=== PATIENT | male | born 1985 | race Caucasian/White ===

== ENCOUNTER 2018-10-10 22:09 | Emergency (ER) | payer OTHER ==
[2018-10-10 23:00] VITALS: PULSE 81; TEMP 97.9
--- NOTE | 2018-10-11 00:11 | ED ---
General Adult HPI - General Source: patient Mode of arrival: ambulatory Limitations: no limitations <Derek Marie Miguel Ángel - Last Filed: 10/11/18 01:16> <Fredy Pak - Last Filed: 10/11/18 01:59> - General Chief complaint: Skin/Abscess/Foreign Body Stated complaint: Poss parasite Time Seen by Provider: 10/10/18 23:56 - History of Present Illness Initial comments: Dictation was produced using [employer] dictation software. please excuse any grammatical, word or spelling errors. Chief Complaint: 33-year-old male with no significant past medical history presents with acute intermittent rash. History of Present Illness: Is a 33-year-old male he is accompanied by his family. Patient states he gets these intermittent rash that occurred every so often. Patient states that he's been having intermittent symptoms that recurred over the last 2-3 days. Patient was at home when he thought that he saw warm coming out of his belly button. Patient thinks he has a parasitic infection. He states he noticed these intermittent rash that occur for several minutes at a time and resolves spontaneously. Patient took a wire brush and tried to brush of the rash. He also notes a poor appetite and inability to gain weight. Patient does not have a PCP. The ROS documented in this emergency department record has been reviewed and confirmed by me. Those systems with pertinent positive or negative responses have been documented in the HPI. All other systems are other negative and/or noncontributory. PHYSICAL EXAM: General Impression: Alert and oriented x3, not in acute distress HEENT: Normocephalic atraumatic, extra-ocular movements intact, pupils equal and reactive to light bilaterally, mucous membranes moist. Cardiovascular: Heart regular rate and rhythm, S1&S2 audible, no murmurs, rubs or gallops Chest: Lungs clear to auscultation bilaterally, no rhonchi, no wheeze, no rales Abdomen: Bowel sounds present, abdomen soft, non-tender, non-distended, no organomegaly Musculoskeletal: Pulses present and equal in all extremities, no peripheral edema Motor: no focal deficits noted Neurological: CN II-XII grossly intact, no focal motor or sensory deficits noted Skin: Multiple superficial abrasions to the bilateral hands Psych: Normal affect and mood ED course: 33-year-old male presents chief complaint of rash and a warm coming out of his belly button. There is no identifiable rash seen at this time. He does have multiple excoriations likely from a wire brush that he was used to scrub the rash out. An attempt was tried to reassure patient that there is no worms that could possibly, from of his belly button. he had expectations to come here and have some blood tests performed. Discussed with patient that there is no indication for these tests however they were adamant. 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 Pending lab studies. Patient is signed out to Dr. Elias. (Derek Marie) - Related Data Allergies Allergy/AdvReac Type Severity Reaction Status Date / Time No Known Allergies Allergy Verified 10/10/18 22:59 Review of Systems ROS Other: All systems not noted in ROS Statement are negative. <Derek Marie - Last Filed: 10/11/18 01:16> ROS Other: All systems not noted in ROS Statement are negative. <Fredy Pak - Last Filed: 10/11/18 01:59> ROS Statement: Those systems with pertinent positive or pertinent negative responses have been documented in the HPI. Past Medical History Past Medical History: No Reported History History of Any Multi-Drug Resistant Organisms: None Reported Past Surgical History: No Surgical Hx Reported Past Psychological History: No Psychological Hx Reported Smoking Status: Never smoker Past Alcohol Use History: None Reported Past Drug Use History: Marijuana <Derek Marie - Last Filed: 10/11/18 01:16> General Exam Limitations: no limitations <Derek Marie - Last Filed: 10/11/18 01:16> Course Vital Signs 10/10/18 22:53 Temperature 97.9 F Pulse Rate 81 Respiratory 16 Rate Blood Pressure 134/87 O2 Sat by Pulse 98 Oximetry Medical Decision Making - Lab Data Result diagrams: 10/11/18 00:30 10/11/18 00:30 <Derek Marie - Last Filed: 10/11/18 01:16> - Lab Data Result diagrams: 10/11/18 00:30 10/11/18 00:30 <Fredy Pak - Last Filed: 10/11/18 01:59> - Lab Data Lab Results 10/11/18 10/11/18 10/11/18 Range/Units 00:30 00:30 00:46 WBC 6.9 (3.8-10.6) k/uL RBC 4.60 (4.30-5.90) m/uL Hgb 13.9 (13.0-17.5) gm/dL Hct 39.5 (39.0-53.0) % MCV 85.8 (80.0-100.0) fL MCH 30.1 (25.0-35.0) pg MCHC 35.1 (31.0-37.0) g/dL RDW 12.6 (11.5-15.5) % Plt Count 218 (150-450) k/uL Neutrophils % 69 % Lymphocytes % 15 % Monocytes % 9 % Eosinophils % 3 % Basophils % 1 % Neutrophils # 4.8 (1.3-7.7) k/uL Lymphocytes # 1.0 (1.0-4.8) k/uL Monocytes # 0.6 (0-1.0) k/uL Eosinophils # 0.2 (0-0.7) k/uL Basophils # 0.1 (0-0.2) k/uL Sodium 138 (137-145) mmol/L Potassium 4.1 (3.5-5.1) mmol/L Chloride 102 (98-107) mmol/L Carbon Dioxide 24 (22-30) mmol/L Anion Gap 12 mmol/L BUN 17 (9-20) mg/dL Creatinine 0.77 (0.66-1.25) mg/dL Est GFR (CKD-EPI)AfAm >90 (>60 ml/min/1.73 sqM) Est GFR (CKD-EPI)NonAf >90 (>60 ml/min/1.73 sqM) Glucose 89 (74-99) mg/dL Calcium 9.8 (8.4-10.2) mg/dL Total Bilirubin 2.9 H (0.2-1.3) mg/dL Conjugated Bilirubin 0.0 (0.0-0.3) mg/dL Unconjugated Bilirubin 2.6 H (0.0-1.1) mg/dL Delta Bilirubin 0.3 H (0.0-0.2) mg/dL AST 40 (17-59) U/L ALT 33 (21-72) U/L Alkaline Phosphatase 58 (38-126) U/L Total Protein 7.4 (6.3-8.2) g/dL Albumin 4.9 (3.5-5.0) g/dL Lipase 89 (23-300) U/L Urine Opiates Screen Not Detected (NotDetected) Ur Oxycodone Screen Not Detected (NotDetected) Urine Methadone Screen Not Detected (NotDetected) Ur Propoxyphene Screen Not Detected (NotDetected) Ur Barbiturates Screen Not Detected (NotDetected) U Tricyclic Antidepress Not Detected (NotDetected) Ur Phencyclidine Scrn Not Detected (NotDetected) Ur Amphetamines Screen Detected H (NotDetected) U Methamphetamines Scrn Not Detected (NotDetected) U Benzodiazepines Scrn Not Detected (NotDetected) Urine Cocaine Screen Not Detected (NotDetected) U Marijuana (THC) Screen Detected H (NotDetected) Disposition <Derek Marie - Last Filed: 10/11/18 01:16> Is patient prescribed a controlled substance at d/c from ED?: No <Fredy Pak - Last Filed: 10/11/18 01:59> Clinical Impression: Dermatitis, Elevated bilirubin Disposition: HOME SELF-CARE Condition: Good Instructions (If sedation given, give patient instructions): Dermatitis (ED) Referrals: None,Stated [Primary Care Provider] - 1-2 days Willis Lu MD [STAFF PHYSICIAN] - 1-2 days Waldemar Kaur MD [STAFF PHYSICIAN] - 1-2 days
[2018-10-11 00:51] LABS: Basophils # (A) 0.1 k/uL (0-0.2); Basophils % (A) 1 %; Eosinophils # (A) 0.2 k/uL (0-0.7); Eosinophils % (A) 3 %; HCT 39.5 % (39.0-53.0); HGB 13.9 gm/dL (13.0-17.5); Lymphocytes % (A) 15 %; MCH 30.1 pg (25.0-35.0); MCHC 35.1 g/dL (31.0-37.0); MCV 85.8 fL (80.0-100.0); Mean Platelet Volume 6.9; Monocytes # (A) 0.6 k/uL (0-1.0); Monocytes % (A) 9 %; Neutrophils # (A) 4.8 k/uL (1.3-7.7); Neutrophils % (A) 69 %; Platelet Count 218 k/uL (150-450); RDW 12.6 % (11.5-15.5); WBC 6.9 k/uL (3.8-10.6)
[2018-10-11 01:10] LABS: ALT 33 U/L (21-72); AST 40 U/L (17-59); Albumin 4.9 g/dL (3.5-5.0); Alkaline Phosphatase 58 U/L (38-126); Anion Gap 12 mmol/L; Bilirubin, Delta 0.3 mg/dL (0.0-0.2); Bilirubin,Unconjugated 2.6 mg/dL (0.0-1.1); Blood Urea Nitrogen 17 mg/dL (9-20); Calcium 9.8 mg/dL (8.4-10.2); Carbon Dioxide 24 mmol/L (22-30); Chloride 102 mmol/L (98-107); Glucose 89 mg/dL (74-99); Lipase 89 U/L (23-300); Potassium 4.1 mmol/L (3.5-5.1); Sodium 138 mmol/L (137-145); Total Bilirubin 2.9 mg/dL (0.2-1.3); Total Protein 7.4 g/dL (6.3-8.2)
[2018-10-11 01:34] LABS: Cocaine Screen,Urine Not Detected (NotDetected); Opiate Screen,Urine Not Detected (NotDetected); Urn Cannabinoid Scrn Detected (NotDetected)
[2018-10-11 01:35] LABS: Amphetamine Screen,Urine Detected (NotDetected); Barbiturate Screen,Urine Not Detected (NotDetected); Benzodiazepines Screen,Urine Not Detected (NotDetected); Methadone Screen, Urine Not Detected (NotDetected); Oxycodone Screen, Urine Not Detected (NotDetected); Phencyclidine Screen,Urine Not Detected (NotDetected); Tricyclic Antidepressant,Urine Not Detected (NotDetected)
[2018-10-11 02:19] VITALS: BP 123/69; RESP 18
== END 2018-10-11 02:18 | disposition home or self-care (01) ==
LOC: EC 22:09
DX: L30.9 Dermatitis, unspecified (principal); E80.7 Disorder of bilirubin metabolism, unspecified; R63.8 Other symptoms and signs concerning food and fluid intake
CPT/HCPCS: 36415; 80053; 80306; 82248; 83690; 85025; 99282